=== PATIENT | male | born 1985 | race Caucasian/White ===

== ENCOUNTER 2023-09-17 08:33 | Emergency (ER) | payer OTHER ==
[~2023-09-17] VITALS: Ht 180.3 cm; Wt 95.1 kg
[~2023-09-17 08:33] MED LIST: CIPR500T4; COMBVENT; MEDROL PACK; NICO21DI4; No Historical Meds; PRED5TAB
[2023-09-17] MEDS ORDERED: IBUP200T46 PO (08:48)
[2023-09-17] MEDS ORDERED: ACET-683 PO (08:48)
[2023-09-17 10:24] LABS: BASO % 0.3 % (0.0-1.0); EOS % 0.1 % (0.0-3.0); HEMOGLOBIN 16.1 g/dl (13.5-17.5); LYMPH # 1.2 10^3/uL (1.5-5.0); MEAN CORPUSCULAR HGB CONC 35.8 g/dl (32.0-36.5); MEAN CORPUSCULAR VOLUME 86.7 fl (80.0-96.0); MONO # 0.7 10^3/uL (0.0-0.8); MONO % 9.6 % (2.0-8.0); NEUTROPHILS # 5.7 10^3/uL (1.5-8.5); NEUTROPHILS % 73.6 % (36.0-66.0); PLATELET COUNT, AUTOMATED 256 10^3/uL (150-450); RED BLOOD COUNT 5.19 10^6/uL (4.30-6.10); WHITE BLOOD COUNT 7.7 10^3/uL (4.0-10.0)
[2023-09-17] MEDS: MORPHINE 4 MG/ML 1ML VIAL IV PRN ×2 (10:33→11:44)
[2023-09-17] MEDS ORDERED: ISOVUE-370 76% 100ML VIAL As Ordered ONE (10:57)
[2023-09-17] MEDS ORDERED: POTASSIUM CHLORIDE 10MEQ SR TABLET PO ONE (11:30)
[2023-09-17] MEDS ORDERED: MORPHINE 4 MG/ML 1ML VIAL IV ONE ×2 (13:50→16:15)
[2023-09-17] MEDS ORDERED: LABETALOL 100MG/20ML VIAL IV STA ×2 (14:59→16:12)
[2023-09-17 16:54] VITALS: BP 190/120
[2023-09-17 16:56] VITALS: BP 170/90; TEMP 97.8; O2SAT 98
[2023-09-17 17:07] LABS: RSV AMPLIFICATION NEGATIVE (NEGATIVE)
== END 2023-09-17 17:00 | disposition short-term general hospital (02) ==
LOC: M ED 08:33
DX: S06.0X0A Concussion without loss of consciousness, initial encounter (principal); S52.502A Unspecified fracture of the lower end of left radius, initial encounter for closed fracture; S22.079A Unspecified fracture of T9-T10 vertebra, initial encounter for closed fracture; S42.022A Displaced fracture of shaft of left clavicle, initial encounter for closed fracture; I16.0 Hypertensive urgency; W19.XXXA Unspecified fall, initial encounter; I45.81 Long QT syndrome; J45.909 Unspecified asthma, uncomplicated; I10 Essential (primary) hypertension; F12.10 Cannabis abuse, uncomplicated; Z87.891 Personal history of nicotine dependence; Z88.2 Allergy status to sulfonamides; Z88.1 Allergy status to other antibiotic agents; Y92.9 Unspecified place or not applicable; Y93.23 Activity, snow (alpine) (downhill) skiing, snowboarding, sledding, tobogganing and snow tubing; Y99.9 Unspecified external cause status
CPT/HCPCS: 70450; 70486; 71260; 72125; 72128; 72131; 73030; 73060; 73090; 73110; 73130; 74177; 80047; 85025; 87631; 93005; 93041; 94760; 96374; 96375; 96376; 99285; J1920; Q9967

== ENCOUNTER → 2023-09-29 | Outpatient (CLI) | payer OTHER ==
[~2023-09-29] MED LIST changes: +ACET-683 PO; +IBUP200T46 PO
[2023-09-29 13:49] LABS: BASO % 0.5 % (0.0-1.0); EOS # 0.1 10^3/uL (0.0-0.5); EOS % 0.8 % (0.0-3.0); HEMATOCRIT 40.3 % (42.0-52.0); HEMOGLOBIN 14.3 g/dl (13.5-17.5); LYMPH # 1.8 10^3/uL (1.5-5.0); LYMPH % 28.3 % (24.0-44.0); MEAN CORPUSCULAR HEMOGLOBIN 31.6 pg (27.0-33.0); MEAN CORPUSCULAR HGB CONC 35.5 g/dl (32.0-36.5); MEAN CORPUSCULAR VOLUME 89.2 fl (80.0-96.0); MONO # 0.6 10^3/uL (0.0-0.8); NEUTROPHILS # 3.8 10^3/uL (1.5-8.5); NEUTROPHILS % 61.1 % (36.0-66.0); PLATELET COUNT, AUTOMATED 297 10^3/uL (150-450); RED BLOOD COUNT 4.52 10^6/uL (4.30-6.10); WHITE BLOOD COUNT 6.2 10^3/uL (4.0-10.0)
[2023-09-29 14:17] LABS: BLOOD UREA NITROGEN 14 MG/DL (9-23); CALCIUM LEVEL 9.2 MG/DL (8.5-10.1); CARBON DIOXIDE LEVEL 29 MMOL/L (20-31); CHLORIDE LEVEL 104 MMOL/L (98-107); CREATININE FOR GFR 0.78 MG/DL (0.70-1.30); GLOMERULAR FILTRATION RATE > 60.0 (>60); GLUCOSE, FASTING 88 MG/DL (60-100); POTASSIUM SERUM 4.3 MMOL/L (3.5-5.1); SODIUM LEVEL 138 MMOL/L (136-145)
== END ==
LOC: M LAB 13:12
PROVIDERS: ATTEND Orthopaedic Surgery
DX: M25.532 Pain in left wrist (principal); M89.8X1 Other specified disorders of bone, shoulder

== ENCOUNTER → 2024-06-13 | Outpatient (CLI) | payer OTHER | LOC: M PLAIMG 07:54 | PROVIDERS: ATTEND Thoracic Surgery (Cardiothoracic Vascular Surgery) | DX: I71.9 Aortic aneurysm of unspecified site, without rupture (principal); M51.44 Schmorl's nodes, thoracic region; I25.10 Atherosclerotic heart disease of native coronary artery without angina pectoris ==